=== PATIENT | female | born 1985 | race Two or more races ===

== ENCOUNTER 2019-03-23 08:46 | Outpatient (CLI) | payer OTHER | END 2019-03-23 08:47 | disposition home or self-care (01) | LOC: RAD 08:46 | DX: R05 Cough (principal) ==

== ENCOUNTER → 2019-10-31 | Outpatient (CLI) | payer OTHER | END | disposition home or self-care (01) | LOC: RAD 11:20 | DX: R05 Cough (principal) ==

== ENCOUNTER 2025-07-10 09:00 | Inpatient (IN) | payer OTHER ==
[~2025-07-10] VITALS: Ht 175.3 cm; Wt 2.7 kg
[2025-07-10 11:19] LABS: BASO % 0.4 % (0.1-1.2); EOS # 0.02 (0.04-0.54); EOS % 0.2 % (0.7-7.0); LYMPH # 1.16 (1.18-3.74); LYMPH % 14.0 % (19.3-53.1); MEAN PLATELET VOLUME 10.80 fl (9.4-12.4); MONO # 0.54 (0.24-0.82); MONO % 6.5 % (4.7-12.5); NEUT # 6.48 (1.56-6.13); NEUT % 78.2 % (34.0-71.1); RED CELL DISTRIBUTION WIDTH 13.8 % (11.6-14.4)
[2025-07-10] MEDS ORDERED: PRENATABS FA T1 EACH PO (11:21)
[2025-07-10] MEDS ORDERED: ECOTRIN81 MG PO (11:21)
[2025-07-10 11:22] LABS: URINE APPEARANCE Clear; URINE BILIRRUBIN Negative (NEGATIVE); URINE BLOOD Negative; URINE COLOR Yellow; URINE GLUCOSE Negative (NEGATIVE); URINE KETONE Negative (NEGATIVE); URINE LEUKOCYTE Trace; URINE NITRATE Negative; URINE PROTEIN Negative (NEGATIVE); URINE UROBILINOGEN 0.2 E.U./dl
[2025-07-10 11:23] LABS: URINE BACTERIA 379.5 uL (0.0-1933); URINE EPITHELIAL CELLS 4.1 uL (0.0-38.8); URINE RBC 2.1 uL (0.0-20.8); URINE WBC 3.3 uL (0.0-23.2)
[2025-07-10 11:37] LABS: URINE CAST 0.00 uL (0.0-1.40)
[2025-07-10 11:45] LABS: COVID-19 AG NEGATIVE (NEGATIVE)
[2025-07-10 11:57] LABS: INR < 0.93
[2025-07-10 12:20] LABS: ALT/SGPT 29.0 U/L (12-78); AST/SGOT 21.0 U/L (15-37); BILIRUBIN TOTAL 0.39 mg/dL (0.3-1.2); BUN CREA RATIO 17.0 (7.0-25.0); CREATININE SERUM 0.42 mg/dL (0.55-1.02); GFR 166.27; GLOBULINA 4.1 G/DL (2.4-3.5); GLUCOSE FASTING 77.0 mg/dL (65-100); OSMOLALITY SERUM 276.0 MOSM/KG (275-295)
[2025-07-14 06:37] VITALS: BP 111/77
[2025-07-14] MEDS ORDERED: CITRIC ACID/SODIUM CITRATE 30 ML BLIST.PACK PO ONE (07:46)
[2025-07-14] MEDS ORDERED: CEFAZOLIN SODIUM 1,000 MG VIAL ONE (07:47)
[2025-07-14] MEDS ORDERED: OXYTOCIN 1,000 ML IV ONE (12:15)
[2025-07-14] MEDS ORDERED: KETOROLAC TROMETHAMINE 30 MG VIAL IV SCH (12:15)
[2025-07-14] MEDS ORDERED: MORPHINE SULFATE 4 MG/ML VIAL IV PRN (12:15)
[2025-07-14 13:48] VITALS: BP 122/63
[2025-07-14 16:40] VITALS: BP 109/68
[2025-07-14 23:48] VITALS: BP 108/67
[2025-07-15] MEDS ORDERED: ACETAMINOPHEN 500 MG GEL..CAP PO SCH (06:00)
[2025-07-15 07:15] LABS: BASO % 0.3 % (0.1-1.2); EOS # 0.06 (0.04-0.54); EOS % 0.6 % (0.7-7.0); LYMPH # 1.61 (1.18-3.74); LYMPH % 16.4 % (19.3-53.1); MEAN PLATELET VOLUME 11.50 fl (9.4-12.4); MONO # 1.04 (0.24-0.82); MONO % 10.6 % (4.7-12.5); NEUT # 7.02 (1.56-6.13); NEUT % 71.6 % (34.0-71.1); RED CELL DISTRIBUTION WIDTH 13.6 % (11.6-14.4)
[2025-07-15] MEDS ORDERED: GABAPENTIN 300 MG CAPSULE PO SCH (09:00)
[2025-07-15] MEDS ORDERED: PNV,CALCIUM 72/IRON/FOLIC ACID 1 TAB TABLET PO SCH (09:00)
[2025-07-15] MEDS ORDERED: DOCUSATE SODIUM 100MG CAP PO SCH (09:00)
[2025-07-15 09:52] VITALS: BP 117/64; O2SAT 100
[2025-07-15 15:40] VITALS: BP 109/67
[2025-07-16 00:20] VITALS: BP 132/72
[2025-07-16 08:41] VITALS: BP 119/63; O2SAT 100
[2025-07-16] MEDS ORDERED: SIMETHICONE 125 MG CAPSULE PO SCH (09:00)
== END 2025-07-16 13:19 | disposition home or self-care (01) | DRG 788 ==
LOC: OB/GYN 07-14 06:20 → O/R 07-14 06:20 → OB/GYN 07-14 07:00
PROVIDERS: ADMIT Obstetrics & Gynecology Gynecology; ATTEND Obstetrics & Gynecology Gynecology
PROC: 4A1HXCZ Monitoring of Products of Conception, Cardiac Rate, External Approach (ICD-10-PCS; 2025-07-14)
PROC: 10D00Z1 Extraction of Products of Conception, Low, Open Approach (ICD-10-PCS; principal; 2025-07-14 07:00)
DX: O32.1XX0 Maternal care for breech presentation, not applicable or unspecified (principal); Z3A.39 39 weeks gestation of pregnancy; Z37.0 Single live birth